=== PATIENT | male | born 1985 | race Asian ===

== ENCOUNTER 2016-12-25 10:49 | Emergency (ER) | payer SELFPAY ==
[2016-12-25 11:00] VITALS: BP 122/93; PULSE 108; RESP 16; TEMP 100.4; O2SAT 94
[2016-12-25] MEDS ORDERED: DEXAMETHASONE 4 MG TAB PO ONE (11:19)
[2016-12-25] MEDS ORDERED: IBUPROFEN 600 MG TAB PO ONE (11:19)
--- NOTE | 2016-12-25 11:22 | EDPHY ---
H & P Time Seen by Provider: 12/25/16 11:04 HPI/ROS: CHIEF COMPLAINT: sore throat, fever HISTORY OF PRESENT ILLNESS: A 31-year-old male presents to the emergency department by private vehicle complaining of sore throat and fever. He has had sore throat for the last few days and fever began yesterday. He had strep throat 1 year ago and he states this feels very similar. No nasal congestion. Occasional cough. He did get a flu shot this past fall. No known ill contacts. He had a rash treated last week at [place] which she does not know what it was from although he feels it is mostly resolved now. No abdominal pain. No vomiting. No diarrhea. REVIEW OF SYSTEMS: Constitutional: Fever, chills Eyes: No double or blurry vision. ENT: sore throat. Respiratory: No cough, no shortness of breath. Cardiac: No chest pain. Gastrointestinal: No abdominal pain, vomiting or diarrhea. Genitourinary: No dysuria. Musculoskeletal: No neck or back pain. Skin: No rashes. Neurological: No headache. Past Medical/Surgical History: Negative. Social History: Single Smoking Status: Never smoked Physical Exam: General Appearance: Alert, no distress. Febrile with a temperature 38.0. No apparent distress. Nontoxic appearing. Eyes: Pupils equal and round. Extraocular motions are all intact. ENT: Mouth: Mucous membranes moist. Posterior pharyngeal injection noted. No exudate. No muffled voice or trismus. Anterior cervical lymphadenopathy palpated. No posterior cervical lymphadenopathy. Neck is supple. Respiratory: No wheezing, rhonchi, or rales, lungs are clear to auscultation. Cardiovascular: Regular rate and rhythm. Gastrointestinal: Abdomen is soft and nontender, no masses, no rebound or guarding, bowel sounds normal. Neurological: Alert and oriented x 3, cranial nerves II through XII grossly intact Skin: Warm and dry, no rashes. Musculoskeletal: Nontender to palpate along the cervical, thoracic or lumbar spine. Neck is supple. Extremities: Full range of motion and no peripheral edema. Psychiatric: Patient is oriented X 3, there is no agitation. Constitutional: Initial Vital Signs Temperature (C) 38 C 12/25/16 10:56 Heart Rate 108 H 12/25/16 10:56 Respiratory Rate 16 12/25/16 10:56 Blood Pressure 122/93 H 12/25/16 10:56 O2 Sat (%) 94 12/25/16 10:56 O2 Delivery Mode Room Air Allergies/Adverse Reactions: No Known Allergies Allergy (Unverified 12/25/16 10:56) Home Medications: Medication Instructions Recorded Amlodipine Besylate 5 mg PO 12/25/16 Penicillin V Potassium 500 mg PO TID #30 tablet 12/25/16 Medical Decision Making ED Course/Re-evaluation: Clinically I think this patient has strep pharyngitis. He had strep pharyngitis 1 year ago and he states this feels very similar. He has posterior pharyngeal injection with fever. He will be treated with penicillin. The nurse had already drawn a rapid strep test which was negative. Patient was given a dose of Decadron and ibuprofen in the emergency department. He was given a note to be off work until tomorrow. He was instructed to return to the emergency department if he develops vomiting , difficulty swallowing, or any other concerns. He was comfortable with this plan. Differential Diagnosis: Including but not limited to strep pharyngitis, mononucleosis, viral pharyngitis , peritonsillar abscess, retropharyngeal abscess - Data Points Laboratory Results: 12/25/16 12/25/16 Unknown 11:00 Group A Strep Screen NEGATIVE (NEGATIVE) Group A Strep DNA Pending Departure - Departure Disposition: Home, Routine, Self-Care Clinical Impression: Acute pharyngitis Qualifiers: Qualifier Code: (J02.9) Acute pharyngitis, unspecified Condition: Good Instructions: Pharyngitis (ED) Additional Instructions: Ibuprofen 600 mg every 8 hours as needed for pain. Penicillin 3 times daily for 10 days. Discard toothbrush after being on antibiotics for at least 48 hours and again when you have completed the antibiotics in 10 days. Referrals: ESTRADA PEÑA [Primary Care Provider] - 1 day, if not improved Stand Alone Forms: Work Excuse Prescriptions: Penicillin V Potassium 500 mg PO TID #30 tablet
== END 2016-12-25 11:30 | disposition home or self-care (01) ==
DX: J02.9 Acute pharyngitis, unspecified (principal)